=== PATIENT | female | born 1990 | race Two or more races ===

== ENCOUNTER 2022-06-22 08:58 | Emergency (ER) | payer OTHER ==
[2022-06-22 09:43] VITALS: BP 136/81; PULSE 70; RESP 18; TEMP 98.2; BMI 28.8
[2022-06-22] MEDS ORDERED: SODIUM CHLORIDE 1,000 ML IV STA (10:33)
[2022-06-22] MEDS ORDERED: ACETAMINOPHEN 1000 MG/100 ML BAG IVPB ONE (10:33)
[2022-06-22 10:42] LABS: BASO % 0.6 % (0-2.0); EOS % 2.4 % (0-4.5); HEMATOCRIT 33.7 % (32.4-45.2); HEMOGLOBIN 11.1 GM/dL (10.7-15.3); LYMPH % 28.2 % (8-40); MCH 24.6 pg (25.7-33.7); MCHC 32.8 g/dl (32.0-36.0); MEAN CELL VOLUME 74.9 fl (80-96); MONO % 5.5 % (3.8-10.2); NEUT % 63.3 % (42.8-82.8); PLATELET COUNT 325 10^3/uL (134-434); RDW 24.7 % (11.6-15.6); WHITE BLOOD COUNT 6.9 K/mm3 (4.0-10.0)
[2022-06-22 10:54] LABS: CALCIUM 9.3 mg/dL (8.5-10.1)
[2022-06-22 10:55] LABS: ALBUMIN 3.6 g/dl (3.4-5.0); BLOOD UREA NITROGEN 7.6 mg/dL (7-18)
[2022-06-22 10:58] LABS: CREATININE 0.7 mg/dL (0.55-1.3)
[2022-06-22 10:59] LABS: BILIRUBIN,TOTAL 0.3 mg/dL (0.2-1)
[2022-06-22 11:00] LABS: TOT PROT 7.3 g/dl (6.4-8.2)
[2022-06-22 11:02] LABS: INR 1.1 (0.83-1.09); PROTHROMBIN TIME (PATIENT) 12.7 SEC (9.7-13.0)
[2022-06-22 11:05] LABS: ACTIVATED PTT 31.6 SECONDS (25.2-36.5)
[2022-06-22 11:12] LABS: ANISOCYTOSIS 1+; MACROCYTOSIS 0
[2022-06-22] MEDS ORDERED: ACETAMINOPHEN INJECTION 100 ML IVPB ONE (11:41)
[2022-06-22] MEDS ORDERED: ACETAMINOPHEN 500 MG TABLET (FP) PO ONE (11:50)
[2022-06-22] MEDS ORDERED: ACETAMINOPHEN 500 MG TABLET (FP) ONE (11:51)
== END 2022-06-22 12:56 | disposition home or self-care (01) ==
LOC: JER 08:58
DX: O20.9 Hemorrhage in early pregnancy, unspecified (principal); Z3A.00 Weeks of gestation of pregnancy not specified
CPT/HCPCS: 36415; 76817-TC; 80053; 84702; 84703; 85025; 85610; 85730; 86850; 86900; 86901; 99284-25